=== PATIENT | male | born 1985 | race African-American/Black ===

== ENCOUNTER 2018-02-26 17:33 | Emergency (ER) | payer MEDICAID ==
[~2018-02-26] VITALS: Ht 175.3 cm; Wt 95.0 kg
[2018-02-26] MEDS ORDERED: BACITRACIN ZINC OINT UDPKT TOP ONE (18:00)
[2018-02-26] MEDS ORDERED: IBUPROFEN 800MG TABLET PO ONE (18:00)
[2018-02-26] MEDS ORDERED: TETANUS, DIPHTHERIA, PERTUSSIS VAC/PF 0.5ML (>7YR OLD) IM ONE (18:00)
[2018-02-26 19:19] VITALS: BP 159/106
== END 2018-02-26 19:22 | disposition home or self-care (01) ==
LOC: ER 17:33
DX: S62.618A Displaced fracture of proximal phalanx of other finger, initial encounter for closed fracture (principal); F17.200 Nicotine dependence, unspecified, uncomplicated; V43.52XA Car driver injured in collision with other type car in traffic accident, initial encounter; Y93.89 Activity, other specified; Y92.488 Other paved roadways as the place of occurrence of the external cause
CPT/HCPCS: 29125; 71045; 73130; 73562; 90471; 90715; 99283